=== PATIENT | male | born 1980 | race Caucasian/White ===

== ENCOUNTER 2017-09-25 12:43 | Emergency (ER) | payer OTHER ==
[~2017-09-25] VITALS: Ht 177.8 cm; Wt 79.4 kg
--- NOTE | 2017-09-25 13:23 | ED GI/GU/ABDOMINAL COMPLAINT ---
History of Present Illness General Chief Complaint: Abdominal Pain/Flank Pain Stated Complaint: SENT BY URGENT CARE FOR ABD. PAIN Source: patient Exam Limitations: no limitations Vital Signs & Intake/Output Vital Signs & Intake/Output Vital Signs Date Time Temp Pulse Resp B/P B/P Pulse O2 O2 Flow FiO2 Mean Ox Delivery Rate 09/25 1722 97.5 64 18 129/72 98 09/25 1455 98.7 09/25 1251 98.7 86 20 127/78 100 Room Air Allergies Coded Allergies: No Known Allergies (09/25/17) Reconcile Medications Hyoscyamine (Levsin) 0.125 MG TABLET 1 TAB PO Q4 PRN abdominal pain Triage Note: PT STATES HE WENT OUT TO EAT THURSDAY NIGHT AND WOKE UP THURSDAY WITH DIARRHEA. TODAY WENT TO WALK IN CLINIC AND SENT HERE FOR MID AND PERIUMBILICAL ABDOMINAL PAIN WITH PERITONEAL SIGNS. +NAUSEA YESTERDAY Triage Nurses Notes Reviewed? yes Onset: Gradual Duration: day(s): Timing: recent history Quality/Severity: moderate Location: periumbilical Radiation: LLQ, RLQ HPI: 36yo male presents to ED complaining of lower abdominal pain beginning yesterday. Patient states that 2 days ago he ate out at a restaurant, he had fish. Patient reports diarrhea, 7 episodes yesterday. Last bowel movement was this morning, was soft. Patient also reporting nausea beginning yesterday. Patient was able to eat a protein bar this morning. Paddy pain started in epigastric area and is now located in her umbilical area with radiation to right and left lower quadrants. Abdominal pain described as 10/10, constant, worsening since onset, worse with walking and movement. Patient reports fever of 100.3F last night. Patient denies skin rash, recent travel. Past History Travel History Traveled to [place] past 21 day No Medical History Any Pertinent Medical History? none Surgical History Surgical History: non-contributory Psychosocial History What is your primary language Congolese Tobacco Use: Current Daily Use Daily Tobacco Use Amount/Type: => 5 Cigarettes daily ETOH Use: occasional use Illicit Drug Use: denies illicit drug use Family History Hx Contributory? No Review of Systems Review of Systems Constitutional: Reports: see HPI. EENTM: Reports: no symptoms. Respiratory: Reports: no symptoms. Cardiovascular: Reports: no symptoms. GI: Reports: see HPI. Genitourinary: Reports: no symptoms. Musculoskeletal: Reports: no symptoms. Skin: Reports: no symptoms. Neurological/Psychological: Reports: no symptoms. Hematologic/Endocrine: Reports: no symptoms. Immunologic/Allergic: Reports: no symptoms. All Other Systems: Reviewed and Negative Physical Exam Physical Exam General Appearance: well developed/nourished, no apparent distress, alert, awake Head: atraumatic, normal appearance Eyes: Bilateral: normal appearance. Ears, Nose, Throat, Mouth: hearing grossly normal, moist mucous membrane Neck: normal inspection, supple, full range of motion Respiratory: normal breath sounds, no respiratory distress, lungs clear Cardiovascular: regular rate/rhythm Gastrointestinal: normal bowel sounds, soft, no organomegaly, periumbilical abdominal tenderness, RLQ and LLQ tenderness, -Rosving's sign Back: normal inspection, normal range of motion Extremities: normal range of motion Neurologic/Psych: awake, alert, oriented x 3 Skin: intact, normal color, warm/dry Core Measures ACS in differential dx? No Sepsis Present: No Sepsis Focused Exam Completed? No Progress Differential Diagnosis: appendicitis, bowel obstruction, colon cancer, cholecystitis, diverticulitis, hernia, inflamm bowel dis, pancreatitis, PUD/GERD , SBO, gastroenteritis, colitis Plan of Care: Orders Procedure Date/time Status C-REACTIVE PROTEIN 09/25 1430 Complete RAPID VIRAL INFLUENZA A 09/25 1417 Complete URINALYSIS 09/25 1415 Complete LIPASE 09/25 1323 Complete HIGH SENSITIVITY CRP 09/25 1323 Complete COMPREHENSIVE METABOLIC PANEL 09/25 1323 Complete CBC WITHOUT DIFFERENTIAL 09/25 1323 Complete AMYLASE 09/25 1323 Complete Laboratory Tests 09/25/17 1430: Anion Gap 13, Estimated GFR > 60, BUN/Creatinine Ratio 17.1, Glucose 85, Calcium 9.8, Total Bilirubin 0.3, AST 16 L, ALT 25, Alkaline Phosphatase 76, C-Reactive Prot, Quant 3.2 H, C-React Prot High Sens > 15.0 H, Total Protein 7.5, Albumin 4.5, Globulin 3.0, Albumin/Globulin Ratio 1.5, Amylase 52, Lipase 47, CBC w Diff NO MAN DIFF REQ, RBC 4.80, MCV 93.9, MCH 30.6, MCHC 32.6 L, RDW 12.7, MPV 6.4 L, Gran % 61.8, Lymphocytes % 22.6, Monocytes % 13.4 H, Eosinophils % 1.7, Basophils % 0.5, Absolute Granulocytes 6.0, Absolute Lymphocytes 2.2, Absolute Monocytes 1.3 H, Absolute Eosinophils 0.2, Absolute Basophils 0, Urinalysis LIGHT H, Urine Color YEL, Urine Clarity CLEAR, Urine pH 6.0, Ur Specific Deridder 1.015, Urine Protein NEG, Urine Ketones NEG, Urine Nitrite NEG, Urine Bilirubin NEG, Urine Urobilinogen 0.2, Ur Leukocyte Esterase NEG, Ur Microscopic SEDIMENT EXAMINED, Urine RBC 1-3, Urine WBC RARE, Urine Mucus FEW, Urine Hemoglobin TRACE-INTACT H, Urine Glucose NEG Microbiology 09/25 1430 NASOPHARYN: Influenza Virus A & B Rapid Smear - COMP CT scan shows enteritis. Low suspicion for small bowel obstruction given patient's bowel movement this morning, he is tolerating PO here in the emergency department, he feels hungry. Patient is not currently nauseous, he was offered medication for nausea for here in the ER or to go home with and he declines. Patient prescribed Levsin for abdominal pain. He will follow-up with his primary care doctor next week if diarrhea is persistent for stool culture. He was given strict return precautions. He is nontoxic appearing, vital signs are stable, he is in no acute distress. The patient agrees with the plan of care. The patient was discussed with Dr. Peters who agrees with this plan. Diagnostic Imaging: Viewed by Me: CT Scan. Discussed w/RAD: CT Scan. Radiology Impression: PATIENT: JUANCARLOS VINCENT PRESENT AGE: 36 PATIENT ACCOUNT NO: [id number] : 79 LOCATION: [facility] ORDERING PHYSICIAN: Miriam BENTON SERVICE DATE: 09/25/17 EXAM TYPE: CAT - CT ABD & PELVIS W IV CONTRAST EXAMINATION: CT ABDOMEN AND PELVIS WITH CONTRAST CLINICAL INFORMATION: Lower abdominal pain. COMPARISON: None. TECHNIQUE: Multidetector volumetric imaging was performed of the abdomen and pelvis following IV administration of 95 mL of Optiray 320 intravenous contrast. Sagittal and coronal reformatted images were obtained on the technologist's workstation. DLP: 265 mGy-cm FINDINGS: LUNG BASES: The visualized lung bases are unremarkable. LIVER, GALLBLADDER, AND BILIARY TREE: The liver is normal in size, shape, and attenuation. No focal hepatic lesion or biliary ductal dilatation is present. The gallbladder is unremarkable with no evidence of radiopaque gallstones, gallbladder wall thickening, or obvious pericholecystic inflammatory changes. PANCREAS: Unremarkable. SPLEEN: Unremarkable. ADRENAL GLANDS: Unremarkable. KIDNEYS AND URETERS: The kidneys are normal in size, shape, and attenuation. No hydronephrosis, hydroureter, or calculi seen. No perinephric stranding. BLADDER: Unremarkable. GASTROINTESTINAL TRACT: No focal inflammatory process. The small bowel loops in the pelvis are mildly prominent with air-fluid levels, possibly an enteritis or a very early/low-grade partial obstruction. No transition point is identified. The appendix is not identified. There are no inflammatory changes to suggest appendicitis. ABDOMINAL WALL: No significant hernia is appreciated. LYMPH NODES: Normal. VASCULAR: Unremarkable. PELVIC VISCERA: Unremarkable. OSSEOUS STRUCTURES: Unremarkable. IMPRESSION: Mildly prominent small bowel loops in the pelvis with air-fluid levels, possibly due to an enteritis or a very early/low grade partial obstruction. No transition point is identified. Otherwise unremarkable. DICTATED BY: Hemanth Bedolla MD DATE/ TIME DICTATED:09/25/171736 CUSTODIAN:JONATHAN DATE/TIME TRANSCRIBED: 09/25/171736 CONFIDENTIAL, DO NOT COPY WITHOUT APPROPRIATE AUTHORIZATION. < Electronically signed in Other Vendor System> SIGNED BY: Hemanth Bedolla MD 09/25/17 1820 Initial ED EKG: none Departure Departure Disposition: HOME OR SELF CARE Condition: Stable Clinical Impression Primary Impression: Diarrhea Secondary Impressions: Nausea Referrals: Supriya DANIEL,Shine Strickland (PCP/Family) Additional Instructions: Begin Levsin for abomdinal pain. You may take ibuprofen and tylenol with this medication. Increase your fluids, if you have persistent diarrhea replace your electrolytes with half gatorade. If symptoms continue please see primary care doctor for stool culture. With any worsening symptoms such as high fevers, vomiting, worsening or severe abdominal pain please return to the emergency department. Departure Forms: Customer Survey General Discharge Information Prescriptions: Current Visit Scripts Hyoscyamine (Levsin) 1 TAB PO Q4 PRN abdominal pain #20 TAB
[2017-09-25 14:49] LABS: ABSOLUTE BASOPHIL COUNT 0 /CUMM (0.0-0.2); ABSOLUTE EOSINOPHIL COUNT 0.2 /CUMM (0.0-0.7); ABSOLUTE LYMPH COUNT 2.2 /CUMM (1.2-3.4); ABSOLUTE MONOCYTE COUNT 1.3 /CUMM (0.10-0.60); BASOPHIL % 0.5 % (0.0-2.0); EOSINOPHIL % 1.7 % (0-5); GRANULOCYTE % 61.8 % (42.2-75.2); MEAN CORPUSCULAR HGB 30.6 PG (27.0-31.0); MEAN CORPUSCULAR HGB CONC 32.6 G/DL (33.0-37.0); MEAN CORPUSCULAR VOLUME 93.9 FL (80.0-94.0); MEAN PLATELET VOLUME 6.4 FL (7.4-10.4); PLATELET COUNT 326 /CUMM (130-400); RBC DISTRIBUTION WIDTH 12.7 % (11.5-14.5); WHITE BLOOD CELL COUNT 9.7 /CUMM (4.8-10.8)
--- NOTE | 2017-09-25 18:20 | CT SCAN REPORT ---
EXAMINATION: CT ABDOMEN AND PELVIS WITH CONTRAST CLINICAL INFORMATION: Lower abdominal pain. COMPARISON: None. TECHNIQUE: Multidetector volumetric imaging was performed of the abdomen and pelvis following IV administration of 95 mL of Optiray 320 intravenous contrast. Sagittal and coronal reformatted images were obtained on the technologist's workstation. DLP: 265 mGy-cm FINDINGS: LUNG BASES: The visualized lung bases are unremarkable. LIVER, GALLBLADDER, AND BILIARY TREE: The liver is normal in size, shape, and attenuation. No focal hepatic lesion or biliary ductal dilatation is present. The gallbladder is unremarkable with no evidence of radiopaque gallstones, gallbladder wall thickening, or obvious pericholecystic inflammatory changes. PANCREAS: Unremarkable. SPLEEN: Unremarkable. ADRENAL GLANDS: Unremarkable. KIDNEYS AND URETERS: The kidneys are normal in size, shape, and attenuation. No hydronephrosis, hydroureter, or calculi seen. No perinephric stranding. BLADDER: Unremarkable. GASTROINTESTINAL TRACT: No focal inflammatory process. The small bowel loops in the pelvis are mildly prominent with air-fluid levels, possibly an enteritis or a very early/low-grade partial obstruction. No transition point is identified. The appendix is not identified. There are no inflammatory changes to suggest appendicitis. ABDOMINAL WALL: No significant hernia is appreciated. LYMPH NODES: Normal. VASCULAR: Unremarkable. PELVIC VISCERA: Unremarkable. OSSEOUS STRUCTURES: Unremarkable. IMPRESSION: Mildly prominent small bowel loops in the pelvis with air-fluid levels, possibly due to an enteritis or a very early/low grade partial obstruction. No transition point is identified. Otherwise unremarkable.
[2017-09-25] MEDS ORDERED: LEVSIN0.125 M1 PO (18:45)
== END 2017-09-25 18:52 ==
LOC: ERH 12:43
PROVIDERS: Physician Assistant
DX: R19.7 Diarrhea, unspecified (principal); R11.0 Nausea
CPT/HCPCS: 74177; 81001; 87804; 87804-59; 96361; 96374; J0131